=== PATIENT | female | born 1990 | race Caucasian/White ===

== ENCOUNTER → 2018-05-02 | Outpatient (CLI) | payer OTHER ==
[2018-05-05 01:10] LABS: CHLAMYDIA TRACHOMATIS, NAA Negative (Negative); NEISSERIA GONORRHOEAE, NAA Negative (Negative)
== END | disposition home or self-care (01) ==
LOC: LAB SHORT 10:39 → LAB 10:39
PROVIDERS: Obstetrics & Gynecology
DX: Z36.89 Encounter for other specified antenatal screening (principal)
CPT/HCPCS: 87491; 87591; G0123

== ENCOUNTER 2020-07-03 11:34 | Emergency (ER) | payer OTHER ==
[~2020-07-03] VITALS: Ht 162.6 cm; Wt 80.3 kg
[2020-07-03] MEDS ORDERED: LIDO700A20 TOP (12:32)
== END 2020-07-03 12:37 | disposition home or self-care (01) ==
LOC: ER 11:34
DX: S29.011A Strain of muscle and tendon of front wall of thorax, initial encounter (principal); X58.XXXA Exposure to other specified factors, initial encounter
CPT/HCPCS: 99283

== ENCOUNTER 2020-08-27 22:51 | Emergency (ER) | payer OTHER ==
[~2020-08-27] VITALS: Ht 162.6 cm; Wt 77.1 kg
[~2020-08-27 22:51] MED LIST: LIDO700A20 TOP
[2020-08-28] MEDS ORDERED: BUPR75 PO (00:11)
[2020-08-28] MEDS ORDERED: VENL150ER PO (00:14)
== END 2020-08-28 00:53 | disposition home or self-care (01) ==
LOC: ER 22:51
DX: R07.89 Other chest pain (principal); Z79.899 Other long term (current) drug therapy
CPT/HCPCS: 96372; 99283; J1885

== ENCOUNTER 2020-09-08 08:07 | Day surgery (SDC) | payer OTHER ==
[~2020-09-08 08:07] MED LIST changes: +BUPR75 PO; +VENL150ER PO
== END 2020-09-08 23:03 | disposition home or self-care (01) ==
LOC: MOI US 08:07
DX: D24.1 Benign neoplasm of right breast (principal)
CPT/HCPCS: 19083; 77065; 88305; A4648

== ENCOUNTER → 2022-12-10 | Outpatient (CLI) | payer OTHER ==
[2022-12-13 15:09] LABS: HPV 16 Negative (Negative); HPV 18 Negative (Negative); HPV OTHER HR TYPES Negative (Negative)
== END ==
LOC: LAB SHORT 15:37 → LAB 15:37
PROVIDERS: Obstetrics & Gynecology
DX: Z01.419 Encounter for gynecological examination (general) (routine) without abnormal findings (principal)
CPT/HCPCS: 87624; G0145

== ENCOUNTER → 2023-05-23 | Outpatient (CLI) | payer OTHER | LOC: LAB SHORT 14:52 → LAB 14:52 | DX: O34.211 Maternal care for low transverse scar from previous cesarean delivery (principal); O99.213 Obesity complicating pregnancy, third trimester; Z3A.00 Weeks of gestation of pregnancy not specified | CPT/HCPCS: 87081; 87150 ==

== ENCOUNTER 2023-06-02 05:39 | Inpatient (IN) | payer OTHER ==
[2023-06-02] VITALS (17 sets, daily range): BP systolic 108–139; BP diastolic 54–98
[~2023-06-02] VITALS: Ht 162.6 cm; Wt 90.9 kg
[2023-06-02] MEDS ORDERED: Lactated Ringer's 1,000 ML IV SCH ×3 (06:05→11:05)
[2023-06-02] MEDS ORDERED: Metoclopramide HCl 5MG / ML 2ML Vial IV ONE (06:05)
[2023-06-02] MEDS ORDERED: Citric Acid/Sodium Citrate 30 ML BTL PO ONE (06:05)
[2023-06-02] MEDS ORDERED: CeFAZolin Sodium 2,000 MG in NS 50 ML IV SCH (06:10)
[2023-06-02 06:59] LABS: BASOPHILS ABSOLUTE AUTO 0.03 K/mm3 (0.00-0.23); BASOPHILS PERCENT AUTO 0 % (0-2); EOSINOPHILS ABSOLUTE AUTO 0.07 K/mm3 (0.00-0.68); EOSINOPHILS PERCENT AUTO 1 % (0-6); Hematocrit 30.6 % (33.0-51.0); IMMATURE GRAN ABSOLUTE AUTO 0.02 K/mm3 (0.00-0.10); IMMATURE GRAN PERCENT AUTO 0 % (0-1); LYMPHOCYTES ABSOLUTE AUTO 2.44 K/mm3 (0.84-5.20); LYMPHOCYTES PERCENT AUTO 28 % (21-46); MONOCYTES ABSOLUTE AUTO 0.66 K/mm3 (0.16-1.47); MONOCYTES PERCENT AUTO 8 % (4-13); Mean Corpuscular HGB 24.2 pg (26.0-34.0); Mean Corpuscular HGB Conc 32.7 g/dL (31.5-36.5); Mean Corpuscular Volume 74 fL (80-100); Mean Platelet Volume 10.2 fL (9.1-12.4); NEUTROPHILS ABSOLUTE AUTO 5.43 K/mm3 (1.96-9.15); NEUTROPHILS PERCENT AUTO 63 % (41-73); Platelet Count 353 K/mm3 (150-400); RDW Coefficient Variation 15.1 % (11.7-14.2); RDW Standard Deviation 40.3 fL (35.1-46.3); Red Blood Cell Count 4.13 M/mm3 (3.80-5.20); White Blood Cell Count 8.65 K/mm3 (4.00-11.30)
[2023-06-02] MEDS ORDERED: Citric Acid/Sodium Citrate 30 ML BTL ONE (08:38)
[2023-06-02] MEDS ORDERED: FentaNYL Citrate 50 MCG/ML 2 ML Injection ONE (09:43)
[2023-06-02] MEDS ORDERED: Ropivacaine 0.2% HCl/Pf 2 MG/ML 20ML Vial ONE (09:44)
[2023-06-02] MEDS ORDERED: Ropivacaine 0.5% HCl/Pf 5 MG/ML 20ML VIAL ONE (09:44)
[2023-06-02] MEDS ORDERED: ePHEDrine Sulfate 50 MG/ML 1ML Injection ONE (09:56)
--- NOTE | 2023-06-02 10:27 | NUR ---
06/02/23 1027 Wonderly,Jocelyn Tavera BABY BORN BY [facility] APGARS 8/9 WT [id number], CORD BLOOD WAS COLLECTED AND SENT WITH RN. DECLINED SENDING CORD GASES.
[2023-06-02] MEDS ORDERED: Magnesium Hydroxide Conc 10 ML UDC PO PRN (11:00)
[2023-06-02] MEDS ORDERED: Rho(D) Immune Globulin 300 MCG / SYR IM ONE (11:05)
[2023-06-02] MEDS ORDERED: Carboprost Tromethamine 250 MCG/ML 1ML Amp IM PRN (11:05)
[2023-06-02] MEDS ORDERED: LR Oxytocin 20 Units 1,000 ML IV SCH (11:05)
[2023-06-02] MEDS ORDERED: Simethicone 80 MG Chew PO PRN (11:05)
[2023-06-02] MEDS ORDERED: Acetaminophen 500 MG Tab PO PRN (11:10)
[2023-06-02] MEDS ORDERED: Promethazine HCl 25 MG Tab PO PRN (11:10)
[2023-06-02] MEDS ORDERED: DiphenhydrAMINE HCL 25 MG Cap PO PRN (11:10)
[2023-06-02] MEDS ORDERED: Ondansetron HCl 2 MG / ML 2ML Vial IV PRN (11:10)
[2023-06-02] MEDS ORDERED: Morphine Sulfate 4 MG/1 ML Injection IV PRN (11:10)
[2023-06-02] MEDS ORDERED: OxyCODONE HCL 5 MG TAB PO PRN (11:10)
[2023-06-02] MEDS ORDERED: Lanolin Cream TOP PRN (11:15)
[2023-06-02] MEDS ORDERED: Measles/Mumps/Rubella Vaccine 0.5 ML Vial SC ONE (11:15)
[2023-06-02] MEDS ORDERED: Misoprostol 200 MCG Tab PR PRN (11:15)
[2023-06-02] MEDS ORDERED: Metoclopramide HCl 10 MG Tab PO PRN (11:15)
[2023-06-02] MEDS ORDERED: Methylergonovine Maleate 0.2MG / ML 1ML Amp IM PRN (11:15)
[2023-06-02] MEDS ORDERED: Ketorolac Tromethamine 30mg Vial IV SCH (12:00)
[2023-06-02] MEDS ORDERED: Docusate Sodium 100 MG Cap PO SCH (21:00)
[2023-06-03] VITALS (7 sets, daily range): BP systolic 112–143; BP diastolic 60–87
[2023-06-03 05:30] LABS: BASOPHILS ABSOLUTE AUTO 0.01 K/mm3 (0.00-0.23); BASOPHILS PERCENT AUTO 0 % (0-2); EOSINOPHILS ABSOLUTE AUTO 0.01 K/mm3 (0.00-0.68); EOSINOPHILS PERCENT AUTO 0 % (0-6); Hematocrit 24.2 % (33.0-51.0); Hemoglobin 7.8 g/dL (11.5-16.0); IMMATURE GRAN ABSOLUTE AUTO 0.04 K/mm3 (0.00-0.10); IMMATURE GRAN PERCENT AUTO 0 % (0-1); LYMPHOCYTES ABSOLUTE AUTO 2.37 K/mm3 (0.84-5.20); LYMPHOCYTES PERCENT AUTO 22 % (21-46); MONOCYTES ABSOLUTE AUTO 0.86 K/mm3 (0.16-1.47); MONOCYTES PERCENT AUTO 8 % (4-13); Mean Corpuscular HGB 24.2 pg (26.0-34.0); Mean Corpuscular HGB Conc 32.2 g/dL (31.5-36.5); Mean Corpuscular Volume 75 fL (80-100); Mean Platelet Volume 10.4 fL (9.1-12.4); NEUTROPHILS PERCENT AUTO 69 % (41-73); Platelet Count 333 K/mm3 (150-400); RDW Coefficient Variation 15.1 % (11.7-14.2); RDW Standard Deviation 40.8 fL (35.1-46.3); Red Blood Cell Count 3.22 M/mm3 (3.80-5.20); White Blood Cell Count 10.69 K/mm3 (4.00-11.30)
[2023-06-03] MEDS ORDERED: Ibuprofen 400 MG Tab PO SCH (06:00)
[2023-06-03] MEDS ORDERED: Prenatal Vit/FE Fumarate/FA 1 Tab PO SCH (09:00)
[2023-06-03] MEDS ORDERED: Sod Ferric Gluc Complx/Sucrose 125 MG in NS 100 ML IV SCH (19:00)
[2023-06-04 05:07] VITALS: BP 131/83
[2023-06-04 08:57] VITALS: BP 129/76
[2023-06-04] MEDS ORDERED: Sod Ferric Gluc Complx/Sucrose 125 MG in NS 100 ML IV SCH (10:45)
[2023-06-04 11:34] VITALS: BP 131/75
[2023-06-04] MEDS ORDERED: IBUP800 PO (14:22)
[2023-06-04] MEDS ORDERED: ACET500 PO (14:23)
[2023-06-04 14:30] VITALS: BP 152/96
[2023-06-04 14:31] VITALS: BP 146/70
--- NOTE | 2023-06-04 17:19 | NUR ---
DISCHARGE EDUCATION REVIEWED WITH PATIENT AT BEDSIDE. PATIENT VERBALIZED UNDERSTANDING, DENIED ANY FURTHER QUESTIONS OR CONCERNS AT THIS TIME. DISCHARGE VITALS STABLE. IV OUT, WNL. PATIENT DISCHARGED HOME WITH INFANT AT HER SIDE.
== END 2023-06-04 14:30 | disposition home or self-care (01) | DRG 788 ==
LOC: BC 05:53
PROVIDERS: ADMIT Obstetrics & Gynecology
PROC: 10D00Z1 Extraction of Products of Conception, Low, Open Approach (ICD-10-PCS; principal; 2023-06-02 08:00)
DX: O34.211 Maternal care for low transverse scar from previous cesarean delivery (principal); O99.02 Anemia complicating childbirth; Z37.0 Single live birth; Z3A.39 39 weeks gestation of pregnancy
CPT/HCPCS: 36415; 85025; 86850; 86900; 86901; A9270; J0690; J1885; J2795; J2916; J3010; J7120